=== PATIENT | female | born 1970 | race Caucasian/White ===

== ENCOUNTER 2023-09-10 19:16 | Emergency (ER) | payer OTHER ==
[~2023-09-10] VITALS: Ht 152.4 cm; Wt 90.7 kg
[2023-09-10 19:52] VITALS: BP 192/94; PULSE 58; RESP 18; TEMP 97.8; O2SAT 98
== END 2023-09-10 21:48 | disposition home or self-care (01) ==
LOC: MED 19:16
DX: R22.42 Localized swelling, mass and lump, left lower limb (principal); M25.562 Pain in left knee; I10 Essential (primary) hypertension; Z79.899 Other long term (current) drug therapy
CPT/HCPCS: 73562; 73610; 93971; 99284